=== PATIENT | female | born 1995 | race Caucasian/White ===

== ENCOUNTER → 2017-12-11 | Outpatient (CLI) | payer OTHER ==
[2017-12-11 18:03] LABS: PH-URINE 7.5 (5.0 - 8.0); URINE APPEARANCE CLOUDY; URINE COLOR YELLOW; URINE PROTEIN(semi-quant) TRACE mg/dL (NEGATIVE)
[2017-12-11 18:04] LABS: URINE BILIRUBIN NEGATIVE (NEGATIVE); URINE BLOOD 50 ery/uL (NEGATIVE); URINE GLUCOSE NEGATIVE (NEGATIVE); URINE KETONE NEGATIVE (NEGATIVE); URINE LEUKOCYTE ESTERASE 2+ (NEGATIVE); URINE NITRATE NEGATIVE (NEGATIVE); URINE UROBILINOGEN NORMAL (NORMAL); URINE WBC >50 /hpf (0-3)
== END ==
LOC: LAB 17:04
PROVIDERS: Nurse Practitioner Family
DX: R39.89 Other symptoms and signs involving the genitourinary system (principal); N30.01 Acute cystitis with hematuria

== ENCOUNTER → 2019-03-29 | Outpatient (CLI) | payer SELFPAY | LOC: LAB 13:05 | DX: R10.9 Unspecified abdominal pain (principal) ==